=== PATIENT | female | born 1960 | race Two or more races ===

== ENCOUNTER 2021-10-18 06:20 | Day surgery (SDC) | payer OTHER ==
[~2021-10-18] VITALS: Ht 157.5 cm; Wt 74.4 kg
[~2021-10-18 06:20] MED LIST: ADULT LOW DOSE81 M1 PO; ATACAND32 MG PO; CARVEDILOL25 MG; NORVASC2.5 MG PO; TAPAZOLE5 MG PO
[2021-10-18] MEDS ORDERED: PERCOCET 5-3251 EACH PO (11:10)
== END 2021-10-18 14:40 | disposition home or self-care (01) ==
LOC: CIR.AMB 06:20
PROVIDERS: ATTEND Surgery
DX: E06.3 Autoimmune thyroiditis (principal); E78.00 Pure hypercholesterolemia, unspecified; I10 Essential (primary) hypertension; Z79.82 Long term (current) use of aspirin